=== PATIENT | female | born 1955 | race Caucasian/White ===

== ENCOUNTER → 2017-03-17 | Outpatient (CLI) | payer OTHER | LOC: FIMAGING 14:04 | PROVIDERS: ATTEND Internal Medicine | DX: R50.9 Fever, unspecified (principal); R06.2 Wheezing; Z98.1 Arthrodesis status ==

== ENCOUNTER → 2017-04-07 | Outpatient (CLI) | payer OTHER | LOC: FIMAGING 10:41 | PROVIDERS: ATTEND Internal Medicine Infectious Disease | DX: R91.1 Solitary pulmonary nodule (principal); K80.20 Calculus of gallbladder without cholecystitis without obstruction ==

== ENCOUNTER → 2017-07-28 | Outpatient (CLI) | payer OTHER | LOC: FIMAGING 13:28 | PROVIDERS: ATTEND Orthopaedic Surgery Orthopaedic Trauma | DX: M79.662 Pain in left lower leg (principal); M71.22 Synovial cyst of popliteal space [Baker], left knee ==

== ENCOUNTER → 2017-11-25 | Outpatient (CLI) | payer OTHER | LOC: FIMAGING 09:42 | PROVIDERS: ATTEND Orthopaedic Surgery | DX: Z01.818 Encounter for other preprocedural examination (principal); Z96.652 Presence of left artificial knee joint; M71.21 Synovial cyst of popliteal space [Baker], right knee ==

== ENCOUNTER 2017-12-02 08:48 | Observation (INO) | payer OTHER ==
[~2017-12-02 08:48] MED LIST: ROPIVACAINE 0.2% 80 MG, EPINEPHrine 0.2 MG, KETOROLAC TROMETHAMINE 30 MG in SYRINGE 0 ML IU ONE; TRANEXAMIC ACID 3,000 MG in NS 50 ML IRR ONE
--- NOTE | 2017-12-02 09:26 | PDHPUP ---
History & Physical Update H&P update statement: This history and physical update is based on an assessment of the patient which was completed after admission or registration (within 24 hours), but prior to the surgery/procedure. H&P update: H&P reviewed & patient examined, no change in patient's condition since H&P completed
[2017-12-02] MEDS ORDERED: VANCOMYCIN 1 GM VIAL ONE (10:27)
[2017-12-02] MEDS ORDERED: TRANEXAMIC ACID 3,000 MG/50 ML BAG IRR ONE (10:27)
[2017-12-02] MEDS ORDERED: ACETAMINOPHEN 325 MG TAB PO ONE (10:34)
[2017-12-02] MEDS ORDERED: DEXAMETHASONE 4 MG/ML VIAL IVP ONE (10:34)
[2017-12-02] MEDS ORDERED: ceFAZolin 2 GM/SWFI 2 GM/20 ML SYR IVP ONE (10:34)
[2017-12-02] MEDS ORDERED: FAMOTIDINE 20 MG TAB PO ONE (10:34)
[2017-12-02] MEDS ORDERED: LR 1,000 ML IV ONE (10:36)
[2017-12-02] MEDS ORDERED: LIDOCAINE 1% 2 ML INJ ID PRN (10:36)
[2017-12-02] MEDS ORDERED: MIDAZOLAM 2 MG/2 ML VIAL IVP ONE (12:09)
--- NOTE | 2017-12-02 12:11 | PDANEPAE ---
ANE History of Present Illness left knee oa ANE Past Medical History - Cardiovascular History Hx Hypertension: Yes Hx Arrhythmias: No Hx Chest Pain: No Hx Coronary Artery / Peripheral Vascular Disease: No Hx CHF / Valvular Disease: No Hx Palpitations: No Cardiovascular History Comment: pcp monitors bp meds - Pulmonary History Hx COPD: No Hx Asthma/Reactive Airway Disease: No Hx Recent Upper Respiratory Infection: No Hx Oxygen in Use at Home: No Hx Sleep Apnea: No Sleep Apnea Screening Result - Last Documented: Negative Pulmonary History Comment: hx of pulmonary nodule - Neurologic History Hx Cerebrovascular Accident: No Hx Seizures: No Hx Dementia: No - Endocrine History Hx Diabetes: No Endocrine History Comment: hypothyroidism - Renal History Hx Renal Disorders: No - Liver History Hx Hepatic Disorders: No Hepatic History Comment: GALLSTONES - Neurological & Psychiatric Hx Hx Neurological and Psychiatric Disorders: No - Cancer History Hx Cancer: No - Congenital Disorder History Hx Congenital Disorders: No - GI History Hx Gastrointestinal Disorders: No Gastrointestinal History Comment: NEG - Other Health History Other Health History: [place] dry skin - Chronic Pain History Chronic Pain: Yes (low back and left knee pain) - Surgical History Prior Surgeries: l3-4 TLIF with Anuj 2014. 2012 LUMBAR SURGERY. 2012 CERVICAL FUSIONS X2 C5-6,6-7. 1998 HYSTERECTOMY. umbilical hernia in 1973 ANE Review of Systems Review of Systems: - Exercise capacity METS (RN): 4 METS ANE Patient History - Allergies Allergies/Adverse Reactions: acetaminophen [From Vicodin] Allergy (Verified 12/02/17 11:35) Vomiting amoxicillin trihydrate [From Augmentin] Allergy (Verified 11/02/17 10:50) hives and itchy diazepam [From Valium] Allergy (Verified 11/02/17 10:50) hives and itchy hydrocodone [From Vicodin] Allergy (Verified 12/02/17 11:35) Vomiting morphine Allergy (Verified 11/02/17 10:50) hives and itchy oxycodone Allergy (Verified 12/02/17 11:35) Vomiting potassium clavulanate [From Augmentin] Allergy (Verified 11/02/17 10:50) hives and itchy tramadol Allergy (Verified 11/02/17 10:50) hives and itchy - Home Medications Home Medications: Herbals/Supplements -Info Only 1 ea PO DAILY 03/16/15 [Last Taken 11/18/17] [place]-3 Fatty Acids [Fish Oil 1000 mg (*)] 2,000 mg PO DAILY 03/16/15 [Last Taken 11/18/17] Triamterene/Hydrochlorothiazid [Triamterene-Hctz 37.5-25 mg Cp] 1 cap PO DAILY 05/24/15 [Last Taken 11/25/17] Aspirin [Aspirin 325 mg (*)] 325 mg PO DAILY 10/26/17 [Last Taken 11/25/17] Cyanocobalamin [Vitamin B12 (*)] 1,000 mcg PO HS 10/26/17 [Last Taken 11/18/17] Estradiol [Estrace Vaginal (*)] 2 gm VAG HS 10/26/17 [Last Taken 11/25/17] Progesterone, Micronized [Progesterone] 200 mg PO HS 10/26/17 [Last Taken ] Westhroid 250mg 0.25 g PO DAILY 10/26/17 [Last Taken 11/18/17] - NPO status NPO Status: no food or drink >8 hours NPO Since - Liquids (Date): 12/01/17 NPO Since - Liquids (Time): 23:00 NPO Since - Solids (Date): 12/01/17 NPO Since - Solids (Time): 21:00 - Smoking Hx Smoking Status: Never smoked - Family Anes Hx Family Hx Anesthesia Complications: when daughter had succinylcholine she was unable to move any muscles and had difficulty breathing for a period of time after surgery ANE Labs/Vital Signs - Vital Signs Vital Signs: reviewed preoperatively; see RN documention for details Blood Pressure: 146/96 Heart Rate: 63 Respiratory Rate: 16 O2 Sat (%): 97 Height: 167.64 cm Weight: 68.039 kg ANE Physical Exam - Airway Neck exam: FROM Mallampati Score: Class 2 Mouth exam: normal dental/mouth exam - Pulmonary Pulmonary: no respiratory distress - Cardiovascular Cardiovascular: regular rate and rhythym - ASA Status ASA Status: II ANE Anesthesia Plan Anesthesia Plan: GA w LMA, spinal Regional Anesthesia: adductor canal FNB
[2017-12-02] MEDS ORDERED: MIDAZOLAM 2 MG/2 ML VIAL ONE (12:14)
[2017-12-02] MEDS ORDERED: PROPOFOL/EMULSION 500 MG/50 ML BOTTLE IV ONE (12:18)
[2017-12-02] MEDS ORDERED: HYDROmorphONE/DILAUDID 1 MG/ML INJ IVP PRN (12:55)
[2017-12-02] MEDS ORDERED: ONDANSETRON 4 MG/2 ML VIAL IVP PRN ×2 (12:55→13:51)
[2017-12-02] MEDS ORDERED: fentaNYL 100 MCG/2 ML INJ IVP PRN (12:55)
[2017-12-02] MEDS ORDERED: NALOXONE HCL 0.4 MG/ML INJ IVP PRN (12:55)
[2017-12-02] MEDS ORDERED: PROMETHAZINE HCL 25 MG/ML INJ IVP PRN ×2 (12:55→13:51)
--- NOTE | 2017-12-02 13:50 | POSTOPPROG ---
Post Op Note Date of Operation: 12/02/17 Surgeon: Fátima Louise Applications [employer] Consultant: vladimir louise Anesthesiologist: dr. zarate Anesthesia: Spinal Pre-op Diagnosis: left knee OA Post-op Diagnosis: same Indication: left knee pain due to OA that failed conservative measures Procedure: L TKA Findings: severe knee OA Inf/Abcess present in the surg proc area at time of surgery?: No EBL: 50-100
[2017-12-02] MEDS ORDERED: DIPHENOXYLATE/ATROPINE LOMOTIL 1 TAB PO PRN (13:51)
[2017-12-02] MEDS ORDERED: TEMAZEPAM 15 MG CAP PO PRN (13:51)
[2017-12-02] MEDS ORDERED: MAGNESIUM HYDROXIDE 30 ML UDCUP PO PRN (13:51)
[2017-12-02] MEDS ORDERED: BISACODYL 10 MG SUPP PR PRN (13:51)
[2017-12-02] MEDS ORDERED: CYCLOBENZAPRINE 10 MG TAB PO PRN (13:51)
[2017-12-02] MEDS ORDERED: METOCLOPRAMIDE 10 MG/2 ML VIAL IVP PRN (13:51)
[2017-12-02] MEDS ORDERED: PROMETHAZINE HCL 25 MG SUPPR PR PRN (13:51)
[2017-12-02] MEDS ORDERED: POLYETHYLENE GLYCOL 3350 17 GM PKT PO PRN (13:51)
[2017-12-02] MEDS ORDERED: LACTULOSE 20 GM/30 ML UDCUP PO PRN (13:51)
[2017-12-02] MEDS ORDERED: diphenhydrAMINE 25 MG CAP PO PRN (13:51)
[2017-12-02] MEDS ORDERED: ONDANSETRON DISINTEGRATING 4 MG TAB PO PRN (13:51)
[2017-12-02] MEDS ORDERED: LR 1,000 ML IV SCH (14:00)
--- NOTE | 2017-12-02 14:00 | POSTANESTH ---
Post Anesthetic Evaluation Cardiovascular Status: Normal, Stable Respiratory Status: Normal, Stable Level of Consciousness/Mental Status: Can Participate in Eval Pain Control: Adequate, Prn Tx Ordered Nausea/Vomiting Control: Adequate, Prn Tx Ordered Complications Possibly Related to Anesthesia: None Noted
[2017-12-02] MEDS: ACETAMINOPHEN 325 MG TAB PO SCH (15:00)
[2017-12-02] MEDS ORDERED: ACETAMINOPHEN 325 MG TAB ONE (15:02)
[2017-12-02] MEDS: oxyCODONE IR 5 MG TAB PO PRN ×2 (17:40→22:08)
[2017-12-02] MEDS: HYDROmorphONE/DILAUDID 2 MG TAB PO PRN (19:46)
[2017-12-02] MEDS: ceFAZolin 2 GM/DEXTROSE 100 ML IV SCH (19:55)
[2017-12-02] MEDS: ASPIRIN 81 MG CHEWABLE TAB PO SCH (21:22)
[2017-12-02] MEDS: SENNOSIDES/DOCUSATE SODIUM TAB PO SCH (21:22)
[2017-12-02] MEDS: FAMOTIDINE 20 MG TAB PO SCH (21:22)
[2017-12-03] MEDS: ACETAMINOPHEN 325 MG TAB PO SCH ×3 (00:49→11:46)
[2017-12-03] MEDS: HYDROmorphONE/DILAUDID 2 MG TAB PO PRN (00:49)
[2017-12-03] MEDS: ceFAZolin 2 GM/DEXTROSE 100 ML IV SCH (04:36)
--- NOTE | 2017-12-03 06:35 | GOP ---
[f rep st] OPERATIVE REPORT DATE OF OPERATION: 12/02/2017 SURGEON: Miriam Andersen MD BLOWER AND COMPRESSOR ASSEMBLER: HILDA Lemus. ANESTHESIA: Spinal. PREOPERATIVE DIAGNOSIS: Left knee osteoarthritis. POSTOPERATIVE DIAGNOSIS: Left knee osteoarthritis. PROCEDURE PERFORMED: Left total knee arthroplasty with computer navigation, robotic assist. FINDINGS/PATHOLOGY: Severe patellofemoral osteoarthritis. ESTIMATED BLOOD LOSS: 30 cc. INDICATIONS: The patient is a 62-year-old female with severe and progressive pain and deformity of the left knee unresponsive to conservative care. The risks and benefits of surgical intervention were explained in detail. DESCRIPTION OF PROCEDURE: The patient was brought to the operative room and placed on the table in the supine position. Spinal anesthesia was induced without difficulty. A pneumatic tourniquet was applied about the left proximal thigh, and the leg was prepped and draped in a sterile fashion. The leg cobb was applied. After exsanguination by elevation the tourniquet was inflated to 275 mm of mercury. Incision was made anterior medial from the tibial tuberosity to a point 2 cm proximal to the superior pole of the patella. Medial parapatellar arthrotomy was carried out from the superior pole of the patella and posteriorly in line with the fibers of the Type II VMO. The medial collateral ligament was elevated and the infrapatellar fat pad was resected. The patella was everted and the articular surface was excised. A 32 mm patellar button was placed. Attention was turned first to the distal aspect of the left femur. At 3 cm proximal to the medial rise of the femur, 2 percutaneous half pins were placed for fixation of the femoral array. In a similar fashion, 2 pins were placed anteromedial on the tibia for fixation of the tibial array. External land marking and registration of the hip center was performed without difficulty. Internal femoral and tibial registration was carried out without difficulty and the femoral and tibial checkpoints were placed and verified for accuracy. Attention was turned to the femur. The foot print for the size 2 femoral component was cut with the saw using the [employer] robotic system and verified for accuracy against the CT based plan. In a similar fashion, saw was used to cut the footprint for the size 2 tibial component using the [employer] system and verified for accuracy against the CT based plan. The tibial articular surface was excised without difficulty, followed by the intercondylar box cut. The knee was extended and the remnants of the medial and lateral meniscus were excised. The posterior capsule was injected with ropivacaine, epinephrine and Toradol. A size 2 tritanium tibial tray was positioned. Trial reduction was then carried out. There was excellent range of motion, alignment, and stability using the 9 mm polyethylene. All trials were then removed. The joint was thoroughly irrigated and carefully dried. The press fit components were implanted. The permanent 9 mm polyethylene was placed without difficulty. The tourniquet was deflated and all bleeders were coagulated. The wound was thoroughly irrigated and closed using interrupted sutures of 2-0 Vicryl for the joint capsule. The subcu was closed with 3-0 Vicryl and the skin with 4-0 Monocryl. Dermabond and Steri-Strips were applied followed by a compressive dressing. The patient was then moved from the operating room to the recovery room in good condition, having tolerated the procedure well. /[id number]/MODL MTDD
[2017-12-03] MEDS: FAMOTIDINE 20 MG TAB PO SCH (08:37)
[2017-12-03] MEDS: oxyCODONE IR 5 MG TAB PO PRN ×3 (08:37→16:24)
[2017-12-03] MEDS: SENNOSIDES/DOCUSATE SODIUM TAB PO SCH (08:37)
[2017-12-03] MEDS: ASPIRIN 81 MG CHEWABLE TAB PO SCH (08:38)
--- NOTE | 2017-12-03 08:52 | SOAPPROG ---
SOAP Progress Note Assessment/Plan: Assessment: Patient is doing well POD 1 s/p L TKA 1) Pain management: pain is well controlled on oral pain meds. Patient prefers dilaudid over oxycodone. Had a lengthy discussion regarding intolerance vs true drug allergies in regard to narcotic pain medications. patient is currently prescribed oxycodon 5-10mg Q3H PRN and dilaudid 2mg Q6H. Scheduled APAP 650mg Q6H. Patient is currently taking tylenol and dilaudid and pain is well controlled. Discussed importance of good pain control before patient is discharged to home. patient has script for oxycodone 5mg as that is the narcotic pain medication we discussed and recommended at her preop appt. Patient may need new script for dilaudid prior to discharge. We would like her to try oxycodone as dilaudid has a high addiction risk. 2) VTE ppx: recommend aspirin 81 mg BID for 4 weeks, cont CHELITA and SCDs 3)Anemia: level is expected initially postop. Asymptomatic. Continue to monitor 4)D/c planning: d/c to home when pain is well controlled and pending release from PT Plan: 12/03/17 08:47 Subjective: Jacquelyn is resting comfortably this morning, discussed pain meds this morning. patient states that vicodin did not help her postop knee scope, but did help after spine surgery once she was out of dilaudid script. patient states oxycodone did not help postop spine surgery. patient is nervous about pain control. patient states pain is well controlled currently and at its worse has been a 4/10 while in the hospital. denies sob, chest pain and N/V. Objective: Vital Signs Temp Pulse Resp BP Pulse Ox 36.6 C 49 L 14 120/64 96 12/03/17 07:40 12/03/17 07:40 12/03/17 07:40 12/03/17 08:37 12/03/17 07:40 Laboratory Results 12/03/17 04:37 12/02/17 12/03/17 12/04/17 05:59 05:59 05:59 Intake Total 2920 Output Total 1380 Balance 1540 LLE: incision dressing is clean and dry, NVI, +pf/df ICD10 Worksheet Patient Problems: Problems Problem Status Onset Papa hematuria Acute Hydronephrosis Acute Low back pain Acute Lumbosacral stenosis Acute Vertebral artery dissection Acute
[2017-12-03] MEDS ORDERED: TRIAMTERENE/HCTZ 37.5/25 1 EACH CAP PO SCH (09:00)
[2017-12-03] MEDS ORDERED: THYROID PO SCH (09:00)
--- NOTE | 2017-12-03 09:35 | GDS ---
[f rep st] DISCHARGE SUMMARY ADMISSION DIAGNOSIS: Left knee osteoarthritis. DISCHARGE DIAGNOSIS: Left knee osteoarthritis. PROCEDURE: Left total knee arthroplasty. VTE PROPHYLAXIS: Recommend aspirin 81 mg twice daily for 4 weeks. BRIEF DESCRIPTION OF HOSPITAL STAY: Patient was admitted for an elective joint arthroplasty. The pa tient tolerated the procedure well and has passed physical therapy. The patient was given appropriat e antibiotic prophylaxis and venous thromboembolism prophylaxis. The patient's pain was well control led on oral pain medication, patient was holding down food, and had urinated. Decision was made to d ischarge the patient. The patient was given post-operative prescriptions pre-operatively. PLAN: Please follow up as scheduled, Dr. Andersen's office December 21 at 8:00 a.m. /[id number]/MODL
[2017-12-03 12:15] VITALS: O2SAT 97
[2017-12-03 15:20] VITALS: BP 113/68; PULSE 61; RESP 16; TEMP 98.1
--- NOTE | 2017-12-04 09:05 | ASDISCHSUM ---
Discharge Information Plan Status:Home with No Needs Medically Cleared to Leave: Discharge Date:12/03/2017 06:34 PM CM D/C Disposition:Home, Routine, Self-Care ADT D/C Disposition:Home, Routine, Self-Care Projected Discharge Date:12/03/2017 06:34 PM Transportation at D/C: Discharge Delay Reason: Follow-Up Date:12/03/2017 06:34 PM Discharge Slot: Final Diagnosis: Placement Information Patient Contact Information Contact Name:ALDA Relationship: Address:[facility] [address] City:[place] Alternate Phone: [facility]/Zip Code:[place] [address] Email: Financial Information Financial Class:HMO and PPO Plans Primary Plan Desc:HMO [place] [employer] Primary Plan Number:[id number] Secondary Plan Desc: Secondary Plan Number: Assessment Information Intervention Information
== END 2017-12-03 18:34 | disposition home or self-care (01) ==
LOC: INTOOBSV 10:25 → F3E 10:25 → F3N 14:33
PROVIDERS: ADMIT Orthopaedic Surgery; ATTEND Orthopaedic Surgery
PROC: 0SRD0JZ Replacement of Left Knee Joint with Synthetic Substitute, Open Approach (ICD-10-PCS; principal; 2017-12-02 12:15)
DX: M17.12 Unilateral primary osteoarthritis, left knee (principal); E03.9 Hypothyroidism, unspecified; Z98.1 Arthrodesis status
CPT/HCPCS: 27447; 73560; 97116; 97161; 97165; G0378; J0171; J0690; J1100; J1885; J2250; J2704; J2795; J3370

== ENCOUNTER → 2019-04-21 | Outpatient (CLI) | payer OTHER, MEDICARE | LOC: BMCIMAGING 07:55 ==